=== PATIENT | female | born 1960 | race Caucasian/White ===

== ENCOUNTER → 2020-04-13 09:56 | Outpatient (BNVA) | payer OTHER, SELFPAY | PROVIDERS: PCP Internal Medicine; Visit Provider Surgery | DX: R10.11 Right upper quadrant pain (principal) | CPT/HCPCS: 99202 ==

== ENCOUNTER 2020-04-22 08:37 | Outpatient (REF) | payer OTHER, SELFPAY ==
--- NOTE | 2020-04-22 08:43 | US_ITS ---
EXAMINATION: US ABDOMEN LIMITED CLINICAL INFORMATION: Right upper quadrant pain. COMPARISON: None TECHNIQUE: Real-time imaging of the right upper quadrant abdominal viscera. FINDINGS: PANCREAS: Normal. LIVER: Normal. The liver is normal in size. The liver contour is normal. Parenchymal echogenicity is normal. No focal hepatic lesion. There is no intrahepatic biliary duct dilatation seen. GALLBLADDER: 0.3 cm polyp is identified along the gallbladder wall. The gallbladder is physiologically distended without evidence of stones, sludge, wall thickening or pericholecystic fluid. COMMON BILE DUCT: Normal in caliber measuring 0.4 cm in diameter. RIGHT KIDNEY: Normal. No hydronephrosis. No renal calculi or focal parenchymal lesions. The kidney measures 10.5 cm in maximum dimension. FREE FLUID: None. US/US abdomen limited IMPRESSION: No acute abnormality. 0.3 cm gallbladder wall polyp noted, which no follow-up required.
== END 2020-04-22 08:38 | disposition home or self-care (01) ==
LOC: HO.US 08:37
PROVIDERS: PCP Internal Medicine; Visit Provider Surgery
DX: R10.11 Right upper quadrant pain (principal)
CPT/HCPCS: 76705

== ENCOUNTER 2020-04-28 08:29 | Day surgery (SDC) | payer OTHER, SELFPAY ==
--- NOTE | 2020-04-23 11:30 | MHC.SHP ---
Pre-Procedural Eval Section B Chief Complaint: right upper quadrant pain Allergies: Allergies Allergy/AdvReac Type Severity Reaction Status Date / Time No Known Allergies Allergy Verified 04/13/20 10:22 Plan I have reviewed the history and physical and performed a pertinent physical examination on my patient. No changes have occurred unless specified.
--- NOTE | 2020-04-27 09:01 | P.CONAN_ITS ---
Documented by User: Krista Coffey 04/27/20 09:02 HPI - Anesthesia Eval Consult details Narrative: 60yo F for Cholecystectomy Laparoscopic PMFSH Active Problems Active Problems: All Active Problems (Updated 04/13/20 @ 10:43 by Carina Boston MD) Right upper quadrant pain (Acute) Past Medical History Medical History Depression Migraine Non-Hodgkin lymphoma in remission Family History Family History Mother Hypertension Hyperlipidemia Father No problems noted. Sister Hypertension Hyperlipidemia Brother Hypertension Hyperlipidemia Daughter No problems noted. Surgical History Surgical History H/O ventral hernia repair History of adjustable gastric banding History of removal of laparoscopic gastric banding device History of sleeve gastrectomy Hx of total knee replacement Social History Social History Alcohol intake: current Alcohol intake frequency: a few times a week Alcohol t ype: wine Smoking Status: Never smoker Use of substances other than those prescribed or required for medical reasons: No Advance Directives: No Advance Directives Information Provided: Yes Meds Allergies Allergy/AdvReac Type Severity Reaction Status Date / Time No Known Allergies Allergy Verified 04/28/20 08:37 Home Medications Medication Instructions Recorded Confirmed Type omeprazole 40 mg capsule,delayed 40 mg PO DAILY 04/13/20 04/13/20 History release paroxetine HCl 40 mg tablet 40 mg PO DAILY 04/13/20 04/13/20 History topiramate 50 mg tablet 50 mg PO BID 04/13/20 04/13/20 History Exam Exam Date and Time: April 27, 2020900 Assessment and Plan Assessment Anesthesia Assessment: Chart Reviewed Documented by User: Mely Rojas 04/28/20 11:04 PMFSH Past Medical History Medical History Depression Migraine Non-Hodgkin lymphoma in remission Family History Family History Mother Hypertension Hyperlipidemia Father No problems noted. Sister Hypertension Hyperlipidemia Brother Hypertension Hyperlipidemia Daughter No problems noted. Family history of problems with anesthesia: No Surgical History Surgical History H/O ventral hernia repair History of adjustable gastric banding History of removal of laparoscopic gastric banding device History of sleeve gastrectomy Hx of total knee replacement History of Problems with Anesthesia: Yes (Difficult intubation, PONV, slow awakening) Social History Social History Alcohol intake: current Alcohol intake frequency: a few times a week Alcohol type: wine Smoking Status: Never smoker Use of substances other than those prescribed or required for medical reasons: No Advance Directives: No Advance Directives Information Provided: Yes Meds Allergies Allergy/AdvReac Type Severity Reaction Status Date / Time No Known Allergies Allergy Verified 04/28/20 08:37 Home Medications Medication Instructions Recorded Confirmed Type omeprazole 40 mg capsule,delayed 40 mg PO DAILY 04/13/20 04/13/20 History release paroxetine HCl 40 mg tablet 40 mg PO DAILY 04/13/20 04/13/20 History topiramate 50 mg tablet 50 mg PO BID 04/13/20 04/13/20 History Exam Height,Weight and Vital Signs: Vital Signs Temp Pulse Resp BP Pulse Ox 04/28/20 08:53 98.6 F 87 18 131/82 98 Pertinent Lab Results Pertinent Lab Results: Lab Results 04/28/20 04/28/20 04/28/20 Range/Units 08:35 09:13 09:13 WBC 3.3 L (4.8-10.8) X10*3/uL RBC 4.30 (4.20-5.50) X10*6/uL Hgb 11.3 L (12.0-16.0) g/dl Hct 37.3 (37-47) % MCV 86.7 (80-98) fL MCH 26.3 L (27.0-33.0) pg MCHC 30.3 L (31.0-35.0) g/dl RDW 15.5 (11.0-16.0) % Plt Count 247 (160-400) X10*3/uL MPV 10.0 (9.4-12.3) fL Absolute Nucleated RBC 0.000 (0.0-0.012) X10*3/uL Nucleated RBC % (auto) 0.0 (0.0-0.2) /100WBC Sodium 141 (135-145) mmol/L Potassium 4.3 (3.3-5.1) mmol/L Chloride 108 (96-108) mmol/L Carbon Dioxide 26 (22-29) mmol/L Anion Gap 11 L (12-20) BUN 23 H (9-16) mg/dL Creatinine 0.76 (0.5-1.4) mg/dL Estim Creat Clear Calc 68.1 Estimated GFR > 60 Fasting Glucose 96 (60-99) mg/dL Calcium 8.4 (8.4-10.2) mg/dL COVID-19 ([facility]) Negative (Negative) COVID-19 Clin Com See Note Airway Mallampati Class: III (Small mouth) TM Dist: <=3cm Neck ROM: Full Heart: RRR Lungs: CTAB Assessment and Plan Assessment Anesthesia Assessment: Anesthesia Plan Discussed and Chart Reviewed Final Anesthetic Review NPO: Yes ASA Class: II Final Preanesthetic Review: No Changes in Pt Med Stat, Meds/Allgs Chart Reviewed, Consent Obtained/Reviewed and Anes Risks/Benef Reviewed Patient Risk: Low Procedure Risk: Intermediate Assessment/Block/Sedation in SS: Assess/Block/Sedation-SS Anesthetic Plan Anesthetic Plan: GA Disposition: Standard PACU
[2020-04-27 10:28] VITALS: BMI 26.4
[2020-04-28] VITALS (17 sets, daily range): BP systolic 103–155; BP diastolic 49–97; PULSE 87–102; RESP 14–18; TEMP 36.7–37; O2SAT 93–100
[2020-04-28 09:11] LABS: COVID-19 Test Negative (Negative)
[2020-04-28] MEDS: Lactated Ringers 1,000 ML 100 ML IVCONT (09:12)
[2020-04-28 09:28] LABS: Hematocrit 37.3 % (37-47); Hemoglobin 11.3 g/dl (12.0-16.0); Mean Corpuscular HGB Conc 30.3 g/dl (31.0-35.0); Mean Corpuscular Hemoglobin 26.3 pg (27.0-33.0); Mean Corpuscular Volume 86.7 fL (80-98); Platelet Count 247 X10*3/uL (160-400); Red Cell Distribution Width 15.5 % (11.0-16.0); White Blood Count 3.3 X10*3/uL (4.8-10.8)
[2020-04-28] MEDS: Scopolamine 1.5 MG PATCH.TD.3 TRANSDERMA (09:55)
[2020-04-28 10:17] LABS: Anion Gap 11 (12-20); Blood Urea Nitrogen 23 mg/dL (9-16); Calcium 8.4 mg/dL (8.4-10.2); Carbon Dioxide 26 mmol/L (22-29); Chloride 108 mmol/L (96-108); Creatinine Clr Calc Pharmacy 68.1; Estimated Glomerular Filt Rate > 60; Glucose Fasting 96 mg/dL (60-99); Potassium 4.3 mmol/L (3.3-5.1); Sodium 141 mmol/L (135-145)
--- NOTE | 2020-04-28 11:36 | P.BOP_ITS ---
Brief Operative Note Date of Service: 04/28/20 Pre-op diagnosis: Biliary colic Post-op diagnosis: same Procedure: Laparoscopic cholecystectomy Implants: Metal clips on cystic artery and duct remnant Surgeon: Carina Boston MD Anesthesia: GETA Director Of Counterintelligence: Zulay Keene Estimated blood loss (mL): 5 Pathology: other (Gallbladder) Condition: stable Disposition: PACU
--- NOTE | 2020-04-28 11:37 | W.PM.OPN ---
Operative Note Operative Note Date of Service: 04/28/20 Narrative: Patient was brought into the operating room, placed on operating table in the supine position. Normal DVT prophylaxis was instituted. Patient received 2 g of IV cefotetan preoperatively. General anesthesia was induced. The abdomen was prepped and draped in the normal sterile fashion using ChloraPrep. A safety time-out was performed. Next a mixture of 1% lidocaine with epinephrine and 0.25% Marcaine plain was used to anesthetize the planned incision site in the infraumbilical position. A 11. Scalpel was used to make a 2 cm infraumbilical transverse surgical incision through which the subcutaneous tissues were dissected down to level the fascia. The fascia was grasped did between 2 Jelena clamps and entered using a 11. Scalpel for about 1 cm vertically. An 0 Vicryl suture was placed on either side of the open fascia. A finger was used to bluntly gain access to the intra-abdominal cavity. A 12 mm Anderson trocar was introduced into the abdomen and secured to the abdominal wall using sutures on the fascia. The abdomen was insufflated to 15 mmHg. Next a 5 mm 30 degree laparoscoped was introduced into the abdomen and used to survey the abdominal cavity which was normal. Next 3 additional 5 mm ports were placed. One port was placed in the epigastrium to the right of the falciform ligament, 2 ports were placed in the right upper quadrant 1 laterally and 1 more medially. The patient was placed in reverse Trendelenburg and left side tilted down. A grasper was placed through the right lateral port and used to grasp the fundus of the gallbladder and retracted it cephalad. Another grasper was used to grasp the infundibulum of the gallbladder retracted inferior and laterally. We cleared the cystic artery and cystic duct circumferentially and the distal 1/3 of the gallbladder with the gallbladder fossa. This gave us the critical view of safety. We then placed 3 clips on the cystic duct distal to the gallbladder 1 clip on the cystic duct proximal to the gallbladder. We placed 1 clip on the cystic artery proximal to the gallbladder and 2 clips on the cystic artery distal to the gallbladder and transected both structures in between clips. We took the remainder of the gallbladder off the gallbladder fossa and placed in Endo-Catch bag and removed it from the abdomen. We then evaluated the gallbladder fossa it was hemostatic there was no evidence of any bile draining or any bleeding noted. The clips were in place on the cystic artery and cystic duct stumps. We then removed the 5 mm ports under direct vision there was no bleeding noted from these port sites. We desufflated the abdomen through the last remaining port and removed the last port and laparoscope. We reapproximated the fascial defect at the umbilicus using a [id number] 0 Vicryl suture and tied the original fascial sutures over that closure. There was no residual fascial defect. We placed an additional amount of local anesthetic into the fascia closure site. We closed all skin incisions with a 4 Monocryl subcuticular stitch. We cleaned and dried the skin and applied Dermabond skin glue to all skin incisions. All counts were correct at the end the case there were no complications. The patient was awake and in stable condition prior to extubation and transfer to the recovery room.
[2020-04-28] MEDS: Ketorolac Tromethamine 15 MG/ML VIAL IVPUSH (12:20)
[2020-04-28] MEDS: oxyCODONE HCl Immed Release 5 MG TABLET PO (12:20)
[2020-04-28] MEDS: fentaNYL citrate/PF 100 MCG/2 ML VIAL 25 MCG IVPUSH ×4 (12:21→13:08)
--- NOTE | 2020-04-28 14:16 | HO.POSTANES ---
Post Anesthesia Evaluation Post Anesthesia Evaluation Vital Signs: Vital Signs Temp Pulse Resp BP Pulse Ox 04/28/20 13:45 98.0 F 98 17 138/79 96 04/28/20 13:30 96 16 130/78 97 04/28/20 13:15 92 16 127/78 96 04/28/20 13:10 98.0 F 96 17 131/81 94 04/28/20 13:08 17 04/28/20 13:00 93 16 144/83 H 93 04/28/20 12:55 95 16 144/82 H 93 04/28/20 12:54 17 04/28/20 12:40 93 17 148/79 H 96 04/28/20 12:35 91 17 146/82 H 96 04/28/20 12:21 17 04/28/20 12:20 91 18 103/49 L 94 04/28/20 12:05 95 16 149/87 H 96 04/28/20 12:00 99 16 155/97 H 96 04/28/20 11:55 102 H 16 143/78 H 97 04/28/20 11:50 98.2 F 89 14 125/79 100 04/28/20 08:53 98.6 F 87 18 131/82 98 Anesthesia: General Endotracheal-GETA Mental Status: Awake Pain Control: Satisfactory Nausea/Vomiting: None Hydration: Adequate Anesthesia-Related Issues: No Anes. Related Issues
== END 2020-04-28 14:30 | disposition home or self-care (01) ==
PROVIDERS: Nurse Practitioner; PCP Internal Medicine; Visit Provider Surgery
PROC: 0FT44ZZ Resection of Gallbladder, Percutaneous Endoscopic Approach (ICD-10-PCS; CPT 47562; principal; 2020-04-28 09:50)
DX: K80.10 Calculus of gallbladder with chronic cholecystitis without obstruction (principal); C85.90 Non-Hodgkin lymphoma, unspecified, unspecified site; Z98.84 Bariatric surgery status; Z96.651 Presence of right artificial knee joint; Z79.899 Other long term (current) drug therapy
CPT/HCPCS: 47562; 36415; 80048; 85027; 87635; 88304; J0131; J1100; J1885; J2250; J2370; J2405; J3010